=== PATIENT | female | born 1940 | race Caucasian/White ===

== ENCOUNTER 2023-10-13 20:59 | Emergency (ER) | payer MEDICARE, BC, SELFPAY ==
[2023-10-13 21:01] VITALS: BP 123/85
[2023-10-13 22:15] VITALS: BMI 26.5
--- NOTE | 2023-10-13 23:01 | ED.GENMED ---
History of Present Illness
<GRACIA Collazo - Last Filed: 10/14/23 01:19>
General
Chief Complaint: Musculo-Skeletal Complaint
Time Seen by Provider: 10/13/23 22:46
History of Present Illness
History of Present Illness:
Pt is an 83 y/o female presenting with left 4th finger pain, swelling, and redness x10 days. She states she noticed a little pain and swelling in the DIP of the left 4th finger 10 days ago and it have been progressively worsening. She states the
pain is a 10/10 all the time and is worse when she touches it. She states the pain is located to the dorsal aspect of the finger as well as the sides. She states she has been taking Tylenol which provides mild relief. She states she pierced it 7
days ago and it drained thick, white puss but it has otherwise not drained anything. She states a white patch developed on it 3 days ago. She had a telemed visit with her family med doctor yesterday and they started her on Keflex which has not
provided any relief. She denies any trauma to the area. She denies any fever, chills, ESQUEDA, vision changes, CP, SOB, abdominal pain, nausea, vomiting.
Past History
<GRACIA Collazo - Last Filed: 10/14/23 01:19>
Past History
ED Past Medical History: None
ED Past Surgical History: None
Social History
Personal:
Living: with family
Phy Exam
<GRACIA Collazo - Last Filed: 10/14/23 01:19>
Physical Exam
Physical Exam:
GENERAL: Alert , in no apparent distress
EYE: pupils equal and reactive
Throat: Airway intact, no exudates
NECK: Supple, no significant adenopathy.
CARDIAC: Regular rate and rhythm .
LUNGS: Clear breath sounds bilaterally, no acute respiratory distress, no wheezes/rales/rhonchi
ABDOMEN: Soft, nondistended, nontender, no cvat
NEUROLOGICAL: Alert and oriented, no focal neuro deficits
SKIN: Erythema and edema located to the dorsal aspect of the left 4th DIP joint. Fluctuant. Abscess noted.
MUSCULOSKELETAL: Decreased ROM of 4th left finger.
PSYCH: Normal and appropriate interaction.
Course
<GRACIA Collazo - Last Filed: 10/14/23 01:19>
Orders/Labs/Results
Orders:
Orders
10/13/23 23:20
Finger(s)/Thumb 2 View Lt [CR Finger(s)/thumb Min 2 Vw Lt] Urgent
Comment:
Reason For Exam: L ring digit-pain/swelling, redness dorsal DIP
10/13/23 23:22
Ketorolac [Toradol] 30 mg IM NOW STA
10/13/23 23:41
Tetanus/Diphth/Acelpertussis [Adacel] 0.5 ml IM .ONCE ONE
10/14/23 01:12
Sulfamethox./Trimethoprim Ds [Bactrim Ds 800 mg/160 mg] 1 tablet PO NOW STA
Vital Signs
Initial and Last Documented VS:
Initial Vital Signs
Temp Pulse Resp BP Pulse Ox
97.8 F 86 16 123/85 96
10/13/23 21:01 10/13/23 21:01 10/13/23 21:01 10/13/23 21:01 10/13/23 21:01
Last Documented Vital Signs
Temp Pulse Resp BP Pulse Ox
97.8 F 72 16 109/79 98
10/13/23 21:01 10/14/23 01:00 10/14/23 01:00 10/14/23 01:00 10/14/23 01:00
<Kate Galdamez DO - Last Filed: 10/14/23 01:23>
Orders/Labs/Results
Orders:
Orders
10/13/23 23:20
Finger(s)/Thumb 2 View Lt [CR Finger(s)/thumb Min 2 Vw Lt] Urgent
Comment:
Reason For Exam: L ring digit-pain/swelling, redness dorsal DIP
10/13/23 23:22
Ketorolac [Toradol] 30 mg IM NOW STA
10/13/23 23:41
Tetanus/Diphth/Acelpertussis [Adacel] 0.5 ml IM .ONCE ONE
10/14/23 01:12
Sulfamethox./Trimethoprim Ds [Bactrim Ds 800 mg/160 mg] 1 tablet PO NOW STA
Vital Signs
Initial and Last Documented VS:
Initial Vital Signs
Temp Pulse Resp BP Pulse Ox
97.8 F 86 16 123/85 96
10/13/23 21:01 10/13/23 21:01 10/13/23 21:01 10/13/23 21:01 10/13/23 21:01
Last Documented Vital Signs
Temp Pulse Resp BP Pulse Ox
97.8 F 72 16 109/79 98
10/13/23 21:01 10/14/23 01:00 10/14/23 01:00 10/14/23 01:00 10/14/23 01:00
Procedures
<GRACIA Collazo - Last Filed: 10/14/23 01:19>
Digital Block
Location of injection for digital block: base of digit
Indiction for Digital Block: other (Incision and drainage)
Was sensory exam normal prior to exam?: intack pin prick
Type of anesthesia: 1% Lidocaine w/o EPI (Na bicarb added)
Complications: none- good anesthesia
Incision/Drainage/Joint Aspiration
Left Distal Dorsal Fourth Finger:
Anethesia: other (Digital block)
Preparation: cleaned with Betadine
Type of procedure: incise and drain
Nature of site: abscess
Description of abscess: less than 3cm
Loculations broken up: No
How much fluid was obtained?: scant amount
Fluid description: other (White, curdy)
Treatment: antibiotics started and other (Dressing applied)
<GRACIA Collazo - Last Filed: 10/14/23 01:19>
*Pulse Oximetry
Patient hypoxic: no
*EKG
Interpreted by ED Provider?: NA
*Continuing Education Director Interpretation
Rate: Continuing Education Director- N/A
*Critical Care Note
Total Time (30-74mins, 75-104mins- exclusive of procedures): Not Applicable
<Kate Galdamez DO - Last Filed: 10/14/23 01:23>
*Radiology
Radiology exam reviewed: preliminary read by ED provider (Left ring digit x-ray shows soft tissue swelling dorsal aspect. No evidence of fracture, no evidence of osteomyelitis.)
ED Attending Note
<GRACIA Collazo - Last Filed: 10/14/23 01:19>
-
Portions of this chart may have been created with voice recognition software.� Occasional wrong word or��sound alike� substitutions may have occurred due to the inherent limitations of voice recognition software.
<Kate Galdamez DO - Last Filed: 10/14/23 01:23>
ED Attending Note
Patient seen and examined by attending physician: Yes
I performed the substantive portion of visit, reviewed & personally made and approve the management plan that is documented in note by myself or TRISH.: Yes
ED Attending Note:
This is an 83-year-old [id number] woman with history of osteoarthritis, hypertension, vee-ibjurul-mivinttej diabetes, hyperlipidemia who presents with 1 week history of pain, redness and development of a whitish nodule dorsal aspect of the
left ring digit DIP joint. She states this whitish nodule initially was nontender but she noticed some redness bilateral sides of her distal digit and thus, 1 week ago, she cleaned a safety pin and attempted to puncture this nodule and was
initially successful in drainage of a small amount of whitish material. Despite doing so she has had progressive redness, swelling, pain and progression in size of this whitish nodule along the dorsal distal aspect of her left ring digit. She has
not had a fever nor chills. She has been intermittently taking Tylenol generally in the a.m. but admits to not taking Tylenol today.
She had a telehealth visit with her primary care physician yesterday and was started on Keflex 500 mg 3 times daily.
Despite initiation of the antibiotic she has had no improvement in redness, pain, swelling.
No history of similar episodes in the past and she denies insightful injury to that finger. She has not been working outdoors, she denies working in a garden, denies woodworking etc.
No prior history of inflammatory arthropathies.
No prior history of MRSA nor prior history of skin abscesses.
Her daily medications include lisinopril, metformin, simvastatin. 3 months ago she was started on Ozempic.
She is unsure as to her last tetanus booster but believes this was greater than 10 years ago.
GENERAL: 83-year-old female appears younger than stated age, bright and alert, pleasant, appears in no acute distress. Her is accompanying. She is afebrile. Normotensive. Without tachycardia.
EYE: anicteric
NECK: Supple, nontender, no meningismus, no significant adenopathy.
ENT: oral mucosa is moist. No rhinorrhea.
CARDIAC: Regular rate and rhythm. no murmur.
LUNGS: Clear breath sounds bilaterally, no acute respiratory distress, no wheezes/rales/rhonchi
ABDOMEN: Soft, nondistended, without focal tenderness
NEUROLOGICAL: Alert and oriented x3, no focal neuro deficits. Gait is gifford and steady.
SKIN: Warm and dry, normal color, good turgor.
MUSCULOSKELETAL: No C/C/E. peripheral pulses are full and equal b/l.
Left ring digit has a 6 mm raised whitish, fluctuant, exquisitely tender nodule at the dorsal aspect of the DIP joint. There is moderate surrounding erythema that extends to the medial and lateral aspect of the digit with local soft tissue swelling
but no circumferential erythema. There is no tenderness nor redness nor swelling of the palmar aspect of the digit, there is no lymphangitis. There is no tenderness nor erythema nor exudate appreciable subungual region. There is minimal flexion
deformity at the DIP joint. Distal sensation, strength intact. Minimally restricted flexion at DIP joint related to pain/swelling.
PSYCH: Normal and appropriate interaction.
Concern for focal skin abscess versus granuloma formation. Other consideration is osteomyelitis. Patient denies insightful injury thus foreign body is much less likely.
She does have history of diabetes thus concern for immunocompromise.
Will check x-ray of digit. Will medicate for pain with an IM dose of Toradol.
Due to concern for skin abscess, concern for occult skin injury will update Tdap.
10/14/2023 0121 AM
X-ray shows soft tissue swelling but no evidence of foreign body nor osteomyelitis.
Incision and drainage of skin abscess performed by PA student under my direct supervision. Adequate anesthesia via digital block of digit.
Small amount of whitish exudate extruded from abscess. Patient tolerated procedure well.
Dry dressing applied.
Recommend continuing Keflex and will add Bactrim for coverage of potential MRSA.
Recommend local heat. Continue Tylenol as needed for pain.
Prompt follow-up with PCP for recheck.
Return precautions discussed.
Discharge Plan
Departure
Patient Disposition: Home (Routine Discharge)
Date of Disposition: 10/14/23
Time of Disposition: 01:14
Patient with high blood pressure during this ER visit?: No
Condition: Good
Discharge Problem:
skin abscess left 4th finger
Instructions: Skin Abscess
Prescriptions:
New
sulfamethoxazole-trimethoprim [Bactrim DS] 800-160 mg tablet
1 tab PO BID 7 Days Qty: 14 0RF
No Action
cephalexin 500 MG capsule
500 mg PO TID Qty: 21 0RF
Referrals:
UNKNOWN - PT DOES,NOT KNOW [Family Provider] -
Activity Restrictions/Additional Instructions:
Continue cephalexin as prescribed.
We are adding Bactrim to be taken twice daily for 1 week.
Continue Tylenol as needed for pain.
Warm compresses or soak your finger in warm water for 15 minutes 4 times daily.
Follow-up with your primary care physician this week for recheck.
Interventions
Interventions:
*Risk Screen - Suicide Last Done: 10/13/23 21:01
*General Assessment Last Done: 10/13/23 21:01
*Neglect/Abuse Screening Last Done: 10/13/23 21:01
ED- Fall Risk Assessment Last Done: 10/13/23 22:15
*ED COVID-19 Vaccine History Last Done: 10/13/23 22:15
ED-Musculoskeletal Assessment Last Done: 10/13/23 22:15
Discharge Date and Time
Print Language: POLISH
[2023-10-13] MEDS: TORADOL 30 MG IM (23:40)
[2023-10-13] MEDS: ADACEL 0.5 ML IM (23:54)
[2023-10-14 01:00] VITALS: BP 109/79
[2023-10-14] MEDS: BACTRIM DS 800 MG/160 MG 1 TABLET PO (01:35)
== END 2023-10-14 01:50 | disposition home or self-care (01) ==
LOC: EMR 20:59
PROVIDERS: EMERGENCY PHYSICIAN Emergency Medicine
DX: L02.512 Cutaneous abscess of left hand (principal)
CPT/HCPCS: 99283; 96372; 41800; 73140; 90715

== ENCOUNTER 2024-09-01 10:34 | Emergency (ER) | payer MEDICARE, BC, SELFPAY ==
[2024-09-01 10:44] VITALS: BP 103/67
[2024-09-01 11:00] VITALS: BP 106/67
[2024-09-01 11:03] LABS: % Basophils 1.2 % (0-2); % Eosinophils 2.4 % (0-6); % Immature Granulocytes 0.2 % (0-0.5); % Lymphocytes 18.5 % (20.5-51.1); % Monocytes 8.2 % (1.7-9.3); % Neutrophils 69.5 % (42.2-75.2); Absolute Basophils 0.1 10^3/uL (0-0.2); Absolute Eosinophils 0.1 10^3/uL (0-0.7); Absolute Lymphocytes 0.8 10^3/uL (1.2-3.4); Absolute Monocytes 0.3 10^3/uL (0.1-0.6); Absolute Neutrophils 2.9 10^3/uL (1.4-6.5); Hematocrit 37.3 % (37.0-47.0); Hemoglobin 12.9 g/dL (12.0-16.0); Mean Corp Hgb Conc. 34.6 g/dL (33.0-37.0); Mean Corpuscular Hgb 31.8 pg (27.0-31.0); Mean Corpuscular Volume 91.9 fL (81.0-99.0); Mean Platelet Volume 10.1 fL (7.4-10.4); Nucleated Red Blood Cells % 0 %; Platelet Count 174 10^3/uL (130-400); Red Blood Cell Count 4.06 10^6/uL (4.20-5.40); Red Cell Dist. Width 13.8 % (11.5-14.5); White Blood Cell Count 4.2 10^3/uL (4.8-10.8)
--- NOTE | 2024-09-01 11:07 | ED.GENMED ---
History of Present Illness
General
Chief Complaint: Weakness
Source: patient
Time Seen by Provider: 09/01/24 10:39
History of Present Illness
History of Present Illness:
84-year-old female with past medical history of hypertension and asthma presents to the emergency department via EMS from home after became concerned that patient was more fatigued than usual, patient stating she is asymptomatic and has no
concerns. EMS did note that the patient's house was quite hot as there was no AC running and also noted patient was in atrial fibrillation with rates going from 50 to 120 bpm, patient without any reported history of atrial fibrillation. Patient
did have a low-grade temperature here of 100.6 but denies any known fevers or other infectious symptoms at home. She is denying any chest pain, shortness of breath, palpitations, cough, abdominal pain, nausea, vomiting, URI-like symptoms,
headaches, vision changes, focal weakness or numbness or any other concerns. Social history was otherwise noncontributory.
Past History
Past History
ED Past Medical History: Asthma and HTN
ED Past Surgical History: Orthopedic
Social History
Tobacco: Non-smoker
Alcohol: Occasional
Drug: None
Personal:
Living: with family
Review of Systems
Review of Systems
All Other Systems: ROS reviewed and negative except as documented in HPI and ROS
Phy Exam
Physical Exam
Physical Exam:
GENERAL: Alert , in no apparent distress
EYE: pupils equal and reactive
NECK: Supple, no significant adenopathy.
ENT: o/p clr, mmm.
CARDIAC: Irregularly irregular, rates between 75 and 88 bpm
LUNGS: Clear breath sounds bilaterally, no acute respiratory distress, no wheezes/rales/rhonchi
ABDOMEN: Soft, without focal tenderness, no r/g, no cvat
NEUROLOGICAL: Alert and oriented
SKIN: Warm and dry, skin intact.
MUSCULOSKELETAL: No edema, well perfused.
PSYCH: Normal and appropriate interaction.
Scores
[id number] Score for Afib Stroke Risk
Age in Years (65=0, 65-74=1, >/=75=2): > or = 75
Sex (Female=+1): Female
Congestive Heart Failure History (Yes=+1): No
Hypertension History (Yes=+1): Yes
Stroke/TIA/Thromboembolism History (Yes=+2): No
Vascular Disease History (Yes=+1): No
Diabetes Mellitus (Yes=+1): Yes
Score: 5
Anticoagulation Recommendations: Recommend anticoagulation (as validated in nonvalvular fib)
Heart Failure Risk
Heart Failure Risk Score: Not Applicable
Heart Score for Chest Pain Patients
STEMI patient?: Not applicable
Withdrawal Assessment of Alcohol
Withdrawal Assessment Completed?: Not applicable
Course
Orders/Labs/Results
Orders:
Orders
09/01/24 10:39
Electrocardiogram (*1) Urgent
Reason for Study: Fatigue / Weakness
EKG- Treatment ONCE
09/01/24 10:53
CMP [Comprehensive Metabolic Panel] Urgent
Complete Blood Count/With Diff Urgent
09/01/24 10:56
Urinalysis Reflex To Culture Urgent
Acetaminophen [Tylenol] 650 mg PO NOW STA
CR Chest - 2 Views Urgent
Comment:
Reason For Exam: reported weakness, fever
09/01/24 11:19
0.9% Sodium Chloride 500 ml [Nss] 500 ml IV BOLUS
Abnormal Lab Results
09/01/24
10:53
WBC 4.2 L 10^3/uL
(4.8-10.8)
RBC 4.06 L 10^6/uL
(4.20-5.40)
MCH 31.8 H pg
(27.0-31.0)
Absolute Lymphs (auto) 0.8 L 10^3/uL
(1.2-3.4)
Lymphocytes % 18.5 L %
(20.5-51.1)
BUN 34 H mg/dl
(7-17)
Creatinine 1.1 H mg/dL
(0.6-1.0)
Glucose 132 H mg/dl
(70-99)
AST 48 H U/L
(14-36)
09/01/24 10:53
09/01/24 10:53
Vital Signs
Initial and Last Documented VS:
Initial Vital Signs
Pulse Resp
87 27
09/01/24 10:38 09/01/24 10:38
Last Documented Vital Signs
Temp Pulse Resp BP Pulse Ox
98.6 F 77 30 93/56 94
09/01/24 12:42 09/01/24 12:30 09/01/24 12:30 09/01/24 12:00 09/01/24 11:15
MDM/Problems Addressed
Differential Diagnosis Includes:
- Viral syndrome
- Subclinical pneumonia or urinary tract infection
- Electrolyte derangement
- Cardiac arrhythmia
- Valvular dysfunction
- Heat related illness
MDM/Problems Addressed:
84-year-old female presenting to the emergency department for evaluation after was concerned for reported fatigue, patient denying this. Found to have a low-grade temperature here however it was noted patient did not have any AC running in
her house and this could just be related to heat related illness. Patient is appearing to be in a rate controlled atrial fibrillation, no known history of A-fib. [id number] score of 5. Despite not having diabetes listed as a chronic medical
condition patient states that she does have this condition and takes Ozempic for this. Given her age patient will likely need to be anticoagulated and needs close follow-up with cardiology, currently has yet to ever been evaluated by a
tool drawing checker. Disposition pending
*Radiology
Radiology exam reviewed: preliminary read by ED provider (No acute infiltrates or consolidations)
*Pulse Oximetry
SaO2: 95
Oxygen Mode of Delivery: Room air
Patient hypoxic: no
*EKG
Interpreted by ED Provider?: Yes
Heart Rate: 93
Rate: normal
Rhythm: a-fib
[place]: normal axis
Ischemia: no ischemia
*Management Manager Interpretation
Rate: normal
Rhythm: sinus
*Critical Care Note
Total Time (30-74mins, 75-104mins- exclusive of procedures): Not Applicable
Patient Management
Social determinants of health affecting care: Living situation and Strong social support
Discussion with other providers: PCP and Depot Manager
Escalation/DeEscalation of care consider admission/obs:
Patient remains hemodynamically stable in a rate controlled atrial fibrillation, her temperature has resolved. I contacted patient's primary care provider and notified them about patient's workup finding including her new onset atrial fibrillation
and that we would be starting the patient on anticoagulant medications. I also discussed the case with cardiology who is in agreement with outpatient management. Will start patient on Eliquis 5 mg twice daily. Patient advised on side effects as
well as potential complications from this medication, advised to avoid any NSAIDs. She is aware of return precautions to the emergency department and will follow-up with her primary care as well as cardiology.
ED Attending Note
-
Portions of this chart may have been created with voice recognition software.� Occasional wrong word or��sound alike� substitutions may have occurred due to the inherent limitations of voice recognition software.
Discharge Plan
Departure
Patient Disposition: Home (Routine Discharge)
Date of Disposition: 09/01/24
Time of Disposition: 12:29
Patient with high blood pressure during this ER visit?: No
Discharge Problem:
Atrial fibrillation
Instructions: Atrial fibrillation - Discharge instructions, Chest Pain CBC Follow Up
Prescriptions:
New
Eliquis 5 mg tablet
5 mg PO BID 30 Days Qty: 60 0RF
No Action
cephalexin 500 MG capsule
500 mg PO TID Qty: 21 0RF
sulfamethoxazole-trimethoprim [Bactrim DS] 800-160 mg tablet
1 tab PO BID 7 Days Qty: 14 0RF
Referrals:
Dorian Morales DO [Family Provider, Family Practice]
Interventions
Interventions:
*Risk Screen - Suicide Last Done: 09/01/24 10:44
*General Assessment Last Done: 09/01/24 11:17
*Neglect/Abuse Screening Last Done: 09/01/24 10:44
*ED- Fall Risk Assessment Last Done: 09/01/24 10:45
*ED COVID-19 Vaccine History Last Done: 09/01/24 10:45
ED- Cardiac Assessment Last Done: 09/01/24 10:54
ED- Neurological Assessment Last Done: 09/01/24 10:54
ED- Pulmonary Assessment Last Done: 09/01/24 10:54
Discharge Date and Time
Print Language: HAITIAN
[2024-09-01] MEDS: TYLENOL 650 MG PO (11:15)
[2024-09-01 11:17] LABS: ALT (SGPT) 22 U/L (0-35); AST (SGOT) 48 U/L (14-36); Albumin 4.4 g/dl (3.5-5.0); Alkaline Phosphatase 64 U/L (38-126); Blood Urea Nitrogen 34 mg/dl (7-17); Calcium 8.8 mg/dl (8.4-10.2); Carbon Dioxide 22 mmol/L (22-30); Chloride 107 mmol/L (98-107); Glucose 132 mg/dl (70-99); Sodium 139 mmol/L (135-145); Total Bilirubin 0.5 mg/dl (0.2-1.3); Total Protein 7.5 g/dl (6.3-8.2); eGFR 50.17
[2024-09-01] MEDS: NSS 500 IV (11:25)
[2024-09-01 12:00] VITALS: BP 93/56
[2024-09-01 13:00] VITALS: BP 102/54
== END 2024-09-01 14:20 | disposition home or self-care (01) ==
LOC: EMR 10:34
PROVIDERS: Physician Assistant Medical; EMERGENCY PHYSICIAN Student in an Organized Health Care Education/Training Program; FAMILY PHYSICIAN Family Medicine
DX: R50.9 Fever, unspecified (principal); R53.83 Other fatigue; R53.1 Weakness; I48.91 Unspecified atrial fibrillation; I10 Essential (primary) hypertension; J45.909 Unspecified asthma, uncomplicated; Z88.8 Allergy status to other drugs, medicaments and biological substances; Z91.048 Other nonmedicinal substance allergy status
CPT/HCPCS: 99285; 71046; 80053; 85025; 93005

== ENCOUNTER 2024-09-03 16:58 | Emergency (ER) | payer MEDICARE, BC, SELFPAY ==
[2024-09-03 17:06] VITALS: BP 96/57
[2024-09-03 18:04] VITALS: BP 110/73
[2024-09-03 18:05] VITALS: BMI 31.4
[2024-09-03 18:31] LABS: % Basophils 0.2 % (0-2); % Eosinophils 0.5 % (0-6); % Immature Granulocytes 0.2 % (0-0.5); % Lymphocytes 18.8 % (20.5-51.1); % Monocytes 8.6 % (1.7-9.3); % Neutrophils 71.7 % (42.2-75.2); Absolute Lymphocytes 0.8 10^3/uL (1.2-3.4); Absolute Monocytes 0.4 10^3/uL (0.1-0.6); Absolute Neutrophils 3.2 10^3/uL (1.4-6.5); Hematocrit 34.1 % (37.0-47.0); Hemoglobin 11.6 g/dL (12.0-16.0); Mean Corpuscular Hgb 31.6 pg (27.0-31.0); Mean Corpuscular Volume 92.9 fL (81.0-99.0); Nucleated Red Blood Cells % 0 %; Platelet Count 142 10^3/uL (130-400); Red Blood Cell Count 3.67 10^6/uL (4.20-5.40); Red Cell Dist. Width 13.7 % (11.5-14.5); White Blood Cell Count 4.4 10^3/uL (4.8-10.8)
[2024-09-03 18:38] LABS: INR 1.58; PT 19.1 Sec (11.4-14.6)
[2024-09-03 18:44] LABS: ALT (SGPT) 67 U/L (0-35); AST (SGOT) 116 U/L (14-36); Albumin 4.1 g/dl (3.5-5.0); Alkaline Phosphatase 91 U/L (38-126); Blood Urea Nitrogen 43 mg/dl (7-17); Calcium 8.7 mg/dl (8.4-10.2); Carbon Dioxide 23 mmol/L (22-30); Chloride 106 mmol/L (98-107); Estimated Creatinine Clearance 36 ml/min; Glucose 115 mg/dl (70-99); Potassium 3.7 mmol/L (3.5-5.1); Sodium 138 mmol/L (135-145); Total Bilirubin 0.8 mg/dl (0.2-1.3); eGFR 45.19
[2024-09-03 19:00] VITALS: BP 97/69
--- NOTE | 2024-09-03 19:23 | ED.GENMED ---
History of Present Illness
General
Chief Complaint: Fever
Source: patient
Time Seen by Provider: 09/03/24 19:03
History of Present Illness
History of Present Illness:
84-year-old female presents to the emergency room complaining of feeling a lack of energy and desire to sleep a lot. She has been feeling this way for the past 2 to 3 months. Patient has not seen her family doctor but was seen here in the
emergency room on September 01. At that time she had a series of labs which were unrevealing. She was also found to be in atrial fibrillation with a controlled rate. She was started on Eliquis and discharged to follow-up with both her primary care
provider and cardiology. Patient evidently went to an urgent care today for the same symptoms. They did an EKG and found atrial fibrillation and told the patient she might be having a heart attack and she needed to return to the emergency room.
Patient denies any chest pain, shortness of breath. She denies any nausea vomiting or diarrhea. She has a normal appetite. She denies any unexpected weight loss or weight gain.
Past History
Past History
ED Past Medical History: Asthma and HTN
ED Past Surgical History: Orthopedic
Social History
Tobacco: Non-smoker
Alcohol: Occasional
Drug: None
Personal:
Living: with family
Phy Exam
Physical Exam
Physical Exam:
General: Awake, Alert, Oriented X3. No acute distress.
Vitals: unremarkable
Head: Atraumatic
Eyes: Pupils equal, EOMI
Throat: Airway intact, no exudates
Neck: Trachea midline
Lungs: Clear and equal b/l
Heart: Irregular egular rate, no murmurs
Abd: Soft, Nontender, No pulsatile mass
Neuro: Nonfocal
Skin: Warm, dry, no rash
Extremities: pulses equal b/l, no edema
Course
Orders/Labs/Results
Orders:
Orders
09/03/24 17:11
Electrocardiogram (*1) Urgent
Reason for Study: Atrial Fibrillation
EKG- Treatment ONCE
09/03/24 18:19
IV Insert/Care/Rem.- Treatment PRN
09/03/24 18:21
Complete Blood Count/With Diff Urgent
Comprehensive Metabolic Panel Urgent
Prothrombin Time Urgent
TSH Reflex To Free T4 Urgent
Comment: ADD ON
09/03/24 19:22
Add On- LAB Urgent
Tests Added?: tsh w reflex t4
09/03/24 19:36
CR Chest - 2 Views Urgent
Comment:
Reason For Exam: intermittent fever
09/03/24 19:37
0.9% Sodium Chloride 500 ml [Nss] 500 ml IV BOLUS
09/03/24 20:20
Troponin I Urgent
Blood Culture Q30M
ESTHER Source: Blood/Venous
Specimen Description:
09/03/24 20:52
Blood Culture Q30M
ESTHER Source: Blood/Venous
Specimen Description:
09/03/24 22:28
Urinalysis Reflex To Culture Urgent
Date Specimen was Collected: 09/03/24
Time Specimen was Collected: 22:25
Urine Microscopic Reflex Cult Urgent
Urine Culture Urgent
ESTHER Source: U
Specimen Description:
Date Specimen was Collected: 09/03/24
Time Specimen was Collected: 22:25
Abnormal Lab Results
09/03/24 09/03/24
18:21 22:28
WBC 4.4 L 10^3/uL
(4.8-10.8)
RBC 3.67 L 10^6/uL
(4.20-5.40)
Hgb 11.6 L g/dL
(12.0-16.0)
Hct 34.1 L %
(37.0-47.0)
MCH 31.6 H pg
(27.0-31.0)
MPV 11.0 H fL
(7.4-10.4)
Absolute Lymphs (auto) 0.8 L 10^3/uL
(1.2-3.4)
Lymphocytes % 18.8 L %
(20.5-51.1)
PT 19.1 H Sec
(11.4-14.6)
BUN 43 H mg/dl
(7-17)
Creatinine 1.2 H mg/dL
(0.6-1.0)
Glucose 115 H mg/dl
(70-99)
AST 116 H U/L
(14-36)
ALT 67 H U/L
(0-35)
Ur Occult Blood Reflex 1+ A
(Negative)
Urine Bacteria (Reflex) Many A
(Negative)
Urine Albumin (Reflex) 2+ A
(Neg - Trace)
09/03/24 18:21
09/03/24 18:21
Vital Signs
Initial and Last Documented VS:
Initial Vital Signs
Temp BP Pulse Ox
99.4 F 96/57 93
09/03/24 17:06 09/03/24 17:06 09/03/24 17:06
Last Documented Vital Signs
Temp Pulse Resp BP Pulse Ox
99.4 F 93 18 116/81 99
09/03/24 17:06 09/03/24 22:41 09/03/24 22:41 09/03/24 23:39 09/03/24 23:39
MDM/Problems Addressed
Differential Diagnosis Includes:
UTI, pneumonia, viral illness, Lyme
MDM/Problems Addressed:
Patient presents due to weakness which has been present for some time. She was seen here in the emergency room a couple days ago and found to be in A-fib with controlled rate. She was instructed by cardiology. Patient had a fever of 101 today
which prompted her to go to an urgent care. She had a negative COVID and flu test there. Urgent care doctor thought her EKG looked abnormal recommend she come to the emergency room. Evaluation here reveals labs which are largely unchanged. Her
EKG today continues to show A-fib with a controlled rate. We did some further testing to identify source of fever including urine and urine culture, blood culture, chest x-ray. No source noted. Patient stable for discharge home. We we will
contact patient should cultures become positive. Follow-up with cardiology.
*Pulse Oximetry
SaO2: 97
Oxygen Mode of Delivery: Room air
Patient hypoxic: no
*EKG
Heart Rate: 84
Rate: normal
Rhythm: a-fib
QRS Pattern: right bundle branch block
Ischemia: non-specific ST changes
*[employer] Interpretation
Rate: normal
Interpretation: abnormal
Rhythm: a-fib
*Critical Care Note
Total Time (30-74mins, 75-104mins- exclusive of procedures): Not Applicable
ED Attending Note
-
Portions of this chart may have been created with voice recognition software.� Occasional wrong word or��sound alike� substitutions may have occurred due to the inherent limitations of voice recognition software.
Discharge Plan
Departure
Patient Disposition: Home (Routine Discharge)
Date of Disposition: 09/03/24
Time of Disposition: 23:34
Patient with high blood pressure during this ER visit?: No
Condition: Good
Discharge Problem:
Atrial fibrillation, Fever, intermittent
Instructions: Atrial fibrillation, Fever, Adult (DC), Chest Pain CBC Follow Up
Prescriptions:
No Action
cephalexin 500 MG capsule
500 mg PO TID Qty: 21 0RF
sulfamethoxazole-trimethoprim [Bactrim DS] 800-160 mg tablet
1 tab PO BID 7 Days Qty: 14 0RF
Eliquis 5 mg tablet
5 mg PO BID 30 Days Qty: 60 0RF
Referrals:
Dorian Morales, DO [Family Provider, [facility]]
Activity Restrictions/Additional Instructions:
We have performed testing here in the emergency room that allows us to say you have not had a heart attack. Your troponin is normal. Your EKG today looks the same as it did a couple days ago. We have sent several tests to look for a reason you
may have a fever. Your urinalysis is not suggestive of a urinary tract infection your chest x-ray shows no evidence for pneumonia. We have sent cultures of your urine and blood and we will call you if anything abnormal grows. It is important you
follow-up with your family doctor to further evaluate reasons why you might be having an intermittent fever. Should also follow-up with the lay health advocate.
Interventions
Interventions:
*Risk Screen - Suicide Last Done: 09/03/24 17:11
*General Assessment Last Done: 09/03/24 18:07
*Neglect/Abuse Screening Last Done: 09/03/24 17:11
*ED- Fall Risk Assessment Last Done: 09/03/24 18:07
*ED COVID-19 Vaccine History Last Done: 09/03/24 18:07
*Nursing Disposition Last Done: 09/03/24 23:52
ED- Neurological Assessment Last Done: 09/03/24 18:15
ED-Skin Assessment Last Done: 09/03/24 18:15
Discharge Date and Time
Discharge Date/Time: 09/03/24 23:54
Print Language: TANZANIAN
[2024-09-03 20:00] VITALS: BP 113/51
[2024-09-03 20:34] LABS: TSH Reflex To Free T4 1.36 uIU/ml (0.47-4.68)
[2024-09-03] MEDS: NSS 500 IV (20:51)
[2024-09-03 20:55] LABS: Troponin I < 0.012 ng/ml
[2024-09-03 22:35] LABS: Urine Albumin 2+ (Neg - Trace); Urine Bilirubin Negative (Negative); Urine Character Clear (Clear); Urine Color Yellow; Urine Glucose Negative (Negative); Urine Ketone Negative (Negative); Urine Leukocyte Negative (Negative); Urine Nitrite Negative (Negative); Urine Occult Blood 1+ (Negative); Urine Urobilinogen Negative (Neg - 1+)
[2024-09-03 22:41] VITALS: BP 105/70
[2024-09-03 22:41] LABS: Urine Squamous Cell >30 /LPF (Few)
[2024-09-03 22:43] LABS: Urine Bacteria Many (Negative); Urine Red Blood Cell 0-2 /HPF (0-2); Urine Waxy Cast 0-2 /LPF
[2024-09-03 23:39] VITALS: BP 116/81
== END 2024-09-03 23:54 | disposition home or self-care (01) ==
LOC: EMR 16:58
PROVIDERS: Registered Nurse; EMERGENCY PHYSICIAN Emergency Medicine; FAMILY PHYSICIAN Family Medicine
DX: I48.91 Unspecified atrial fibrillation (principal); R50.9 Fever, unspecified; I45.10 Unspecified right bundle-branch block; I10 Essential (primary) hypertension; J45.909 Unspecified asthma, uncomplicated; Z79.01 Long term (current) use of anticoagulants
CPT/HCPCS: 99285; 96360; 71046; 80053; 81003; 81015; 84443; 84484; 85025; 85610; 87040; 87086; 93005